=== PATIENT | female | born 1985 | race Caucasian/White ===

== ENCOUNTER 2019-02-03 14:45 | Inpatient (IN) | payer OTHER ==
[~2019-02-03] VITALS: Ht 172.7 cm; Wt 84.8 kg
[2019-02-16] MEDS ORDERED: PRENATAL TABLE1 EACH PO (12:32)
[2019-02-19] MEDS ORDERED: NAPROXEN500 MG PO (14:32)
== END 2019-02-19 16:21 | disposition home or self-care (01) | DRG 788 ==
LOC: O/R 14:45 → LDR 02-16 11:22 → OB/GYN 02-16 11:22
PROVIDERS: ADMIT Obstetrics & Gynecology
PROC: 3E033VJ Introduction of Other Hormone into Peripheral Vein, Percutaneous Approach (ICD-10-PCS; 2019-02-16)
PROC: 4A1HXCZ Monitoring of Products of Conception, Cardiac Rate, External Approach (ICD-10-PCS; 2019-02-16)
PROC: 10D00Z1 Extraction of Products of Conception, Low, Open Approach (ICD-10-PCS; principal; 2019-02-16 16:00)
DX: O82 Encounter for cesarean delivery without indication (principal); Z3A.38 38 weeks gestation of pregnancy; Z37.0 Single live birth

== ENCOUNTER 2024-01-22 14:09 | Outpatient (CLI) | payer OTHER ==
[~2024-01-22 14:09] MED LIST: NAPROXEN500 MG PO; PRENATAL TABLE1 EACH PO
== END 2024-01-22 14:19 | disposition home or self-care (01) ==
LOC: PRENATAL 14:09
PROVIDERS: ATTEND Obstetrics & Gynecology Maternal & Fetal Medicine
DX: O35.3XX0 Maternal care for (suspected) damage to fetus from viral disease in mother, not applicable or unspecified (principal); O44.00 Complete placenta previa NOS or without hemorrhage, unspecified trimester; O28.1 Abnormal biochemical finding on antenatal screening of mother; Z3A.20 20 weeks gestation of pregnancy

== ENCOUNTER 2024-01-22 16:02 | Outpatient (CLI) | payer OTHER | END 2024-01-22 16:10 | disposition home or self-care (01) | LOC: LAB 16:02 | PROVIDERS: ATTEND Obstetrics & Gynecology Maternal & Fetal Medicine | DX: O28.5 Abnormal chromosomal and genetic finding on antenatal screening of mother (principal); O28.3 Abnormal ultrasonic finding on antenatal screening of mother ==

== ENCOUNTER → 2024-03-17 09:24 | Outpatient (CLI) | payer OTHER | END | disposition home or self-care (01) | LOC: PRENATAL 09:24 | PROVIDERS: ATTEND Obstetrics & Gynecology Maternal & Fetal Medicine | DX: O26.849 Uterine size-date discrepancy, unspecified trimester (principal); O28.1 Abnormal biochemical finding on antenatal screening of mother; O28.5 Abnormal chromosomal and genetic finding on antenatal screening of mother; O34.219 Maternal care for unspecified type scar from previous cesarean delivery; O09.529 Supervision of elderly multigravida, unspecified trimester; Z3A.28 28 weeks gestation of pregnancy ==

== ENCOUNTER 2024-05-08 08:03 | Outpatient (CLI) | payer OTHER | END 2024-05-08 08:04 | disposition home or self-care (01) | LOC: PRENATAL 08:03 | PROVIDERS: ATTEND Obstetrics & Gynecology Maternal & Fetal Medicine | DX: O26.849 Uterine size-date discrepancy, unspecified trimester (principal); O36.8199 Decreased fetal movements, unspecified trimester, other fetus; O28.1 Abnormal biochemical finding on antenatal screening of mother; O28.5 Abnormal chromosomal and genetic finding on antenatal screening of mother; O34.219 Maternal care for unspecified type scar from previous cesarean delivery; O09.529 Supervision of elderly multigravida, unspecified trimester; Z3A.37 37 weeks gestation of pregnancy ==

== ENCOUNTER 2024-05-28 09:53 | Inpatient (IN) | payer OTHER ==
[~2024-05-28] VITALS: Ht 172.7 cm; Wt 2.7 kg
[2024-05-28 08:51] VITALS: BP 110/68
[2024-05-28] MEDS ORDERED: RINGERS SOLUTION,LACTATED 1,000 ML IV SCH ×2 (10:30→13:00)
[2024-05-28 11:28] LABS: HEMATOCRIT 33.2 % (36.0-45.00); HEMOGLOBIN 11.2 g/dL (12.0-15.00); MEAN CELL VOLUME 85.5 fL (80.00-100.00); MEAN CORPUSCULAR HEMOGLOBIN 28.7 pg (27.00-32.0); MEAN CORPUSCULAR HGB CONC 33.6 g/dl (32.0-36.0); PLATELET COUNT 196 K/uL (150-450); RED BLOOD COUNT 3.89 M/uL (4.00-6.00); RED CELL DISTRIBUTION WIDTH 13.1 % (11.5-14.5)
[2024-05-28] MEDS ORDERED: ERYTHROMYCIN BASE OPHT 1GM EACH TUBE OP ONE ×2 (11:29→13:00)
[2024-05-28] MEDS ORDERED: OXYTOCIN 10 UNITS/ML VIAL ONE (11:29)
[2024-05-28 11:30] LABS: URINE APPEARANCE Cloudy; URINE BILIRRUBIN Negative (NEGATIVE); URINE BLOOD Moderate; URINE COLOR Yellow; URINE GLUCOSE Negative (NEGATIVE); URINE KETONE Negative (NEGATIVE); URINE LEUKOCYTE Large; URINE NITRATE Negative; URINE PROTEIN Trace (NEGATIVE); URINE UROBILINOGEN 0.2 E.U./dl
[2024-05-28 11:32] LABS: URINE BACTERIA 6868.7 uL (0.0-1933); URINE CAST 2.65 uL (0.0-1.40); URINE EPITHELIAL CELLS 165.2 uL (0.0-38.8); URINE RBC 109.7 uL (0.0-20.8); URINE WBC 372.6 uL (0.0-23.2)
[2024-05-28 11:47] LABS: INR < 0.93; PARTIAL THROMBOPLASTIN TIME 27.6 SECONDS (22.0-34.0); PROTHROMBIN TIME 9.9 SECONDS (9.0-11.5)
[2024-05-28 12:09] LABS: ALBUMIN 2.7 gm/dL (3.4-5.0); BILIRUBIN TOTAL 0.41 mg/dL (0.3-1.2); CALCIUM 8.6 mg/dL (8.5-10.1); CREATININE SERUM 0.71 mg/dL (0.55-1.02); GFR 92.13; GLOBULINA 3.6 G/DL (2.4-3.5); POTASSIUM 4.34 mEq/L (3.5-5.1); TOTAL PROTEIN 6.3 gm/dL (6.4-8.2)
[2024-05-28 12:24] LABS: URINE YEAST MANY /hpf
[2024-05-28] MEDS ORDERED: OXYTOCIN 1,000 ML IV SCH (13:00)
[2024-05-28] MEDS ORDERED: MORPHINE SULFATE 4 MG/ML CARTRIDGE IV PRN (13:00)
[2024-05-28] MEDS ORDERED: SIMETHICONE 125 MG CAPSULE PO SCH (13:00)
[2024-05-28] MEDS ORDERED: ACETAMINOPHEN 325 MG TABLET PO SCH (14:00)
[2024-05-28] MEDS ORDERED: PROMETHAZINE HCL 50 MG/ML AMPUL IV SCH (14:00)
[2024-05-28] MEDS ORDERED: PROMETHAZINE HCL 50 MG/ML AMPUL IM ONE (16:26)
[2024-05-28 16:47] LABS: HEMATOCRIT 35.8 % (36.0-45.00); HEMOGLOBIN 11.6 g/dL (12.0-15.00); MEAN CELL VOLUME 86.8 fL (80.00-100.00); MEAN CORPUSCULAR HEMOGLOBIN 28.1 pg (27.00-32.0); MEAN CORPUSCULAR HGB CONC 32.3 g/dl (32.0-36.0); PLATELET COUNT 196 K/uL (150-450); RED BLOOD COUNT 4.12 M/uL (4.00-6.00); RED CELL DISTRIBUTION WIDTH 12.8 % (11.5-14.5)
[2024-05-28 16:55] VITALS: BP 126/68
[2024-05-29 00:19] VITALS: BP 98/60
[2024-05-29 08:39] VITALS: BP 110/70
[2024-05-29] MEDS ORDERED: NAPROXEN 500 MG TABLET PO SCH (09:00)
[2024-05-29 16:00] VITALS: BP 90/52
[2024-05-30 01:10] VITALS: BP 108/65; O2SAT 100
[2024-05-30 08:19] VITALS: BP 127/70
[2024-05-30 13:44] VITALS: BP 118/74
[2024-05-30 16:00] VITALS: BP 117/71
[2024-05-31 00:11] VITALS: BP 95/60
[2024-05-31 08:00] VITALS: BP 99/63
[2024-05-31] MEDS ORDERED: Tylenol #3 PO (09:33)
[2024-05-31] MEDS ORDERED: NAPR500T14 PO (09:33)
== END 2024-05-31 12:31 | disposition home or self-care (01) | DRG 788 ==
LOC: LDR 09:53 → O/R 13:06 → OB/GYN 13:27
PROVIDERS: ADMIT Obstetrics & Gynecology; ATTEND Obstetrics & Gynecology
PROC: 4A1HXCZ Monitoring of Products of Conception, Cardiac Rate, External Approach (ICD-10-PCS; 2024-05-28)
PROC: 10D00Z1 Extraction of Products of Conception, Low, Open Approach (ICD-10-PCS; principal; 2024-05-28 13:30)
DX: O34.211 Maternal care for low transverse scar from previous cesarean delivery (principal); Z3A.38 38 weeks gestation of pregnancy; Z37.0 Single live birth; Z20.822 Contact with and (suspected) exposure to COVID-19